=== PATIENT | male | born 1970 | race Caucasian/White ===

== ENCOUNTER 2020-10-02 04:02 | Emergency (ER) | payer BC, OTHER ==
[~2020-10-02] VITALS: Ht 157.5 cm; Wt 106.6 kg
[2020-10-02] MEDS ORDERED: MECLIZINE HCL 25 MG TABLET ONE (04:13)
--- NOTE | 2020-10-02 04:21 | NUR ---
jacob came to er bed 4 c/o dizziness, "room spinning sensation" 2xdays ago. aaox4. no sob. breathing evenly and unlabored on room air. connected to the monitor.
--- NOTE | 2020-10-02 04:22 | NUR ---
PER RADIOLOGY DEPT, CT CURRENTLY DOWN FOR MAINTENANCE. UNABLE TO TAKE PT TO CT UNTIL AFTER 629. AWARE
[2020-10-02 04:23] LABS: BASOPHILS % (AUTO) 0.5 % (0.0-2.0); EOSINOPHILS % (AUTO) 3.9 % (0.0-6.0); HEMATOCRIT 48 % (39-51); HEMOGLOBIN 16.3 g/dL (13.5-17.5); LYMPHOCYTES # (AUTO) 1.4 /CMM (0.8-4.8); LYMPHOCYTES % (AUTO) 20.2 % (20.0-44.0); MEAN CORPUSCULAR HGB CONC 34 g/dl (31.0-36.0); MEAN CORPUSCULAR VOLUME 86 fL (80-96); MONOCYTES # (AUTO) 0.7 /CMM (0.1-1.30); MONOCYTES % (AUTO) 10.1 % (2.0-12.0); NEUTROPHILS # (AUTO) 4.7 /CMM (1.8-8.9); NEUTROPHILS % (AUTO) 65.3 % (43.0-81.0); PLATELET COUNT (AUTO) 258 /CMM (150-450); RED BLOOD CELL COUNT(AUTO) 5.66 MIL/uL (4.5-6.0); WHITE BLOOD COUNT (AUTO) 7.1 K/uL (4.3-11.0)
[2020-10-02] MEDS ORDERED: MECLIZINE HCL 12.5 MG TABLET PO ONE (04:30)
[2020-10-02 04:31] LABS: CALCIUM, SERUM 8.8 mg/dL (8.5-10.1); CREATININE 0.9 mg/dL (0.6-1.3); POTASSIUM 3.8 mmol/L (3.5-5.1)
[2020-10-02] MEDS ORDERED: DIAZEPAM 5 MG TABLET ONE (05:39)
[2020-10-02] MEDS ORDERED: DIAZEPAM 5 MG TABLET PO ONE (06:00)
--- NOTE | 2020-10-02 06:55 | NUR ---
PT BROUGHT BY RADIOLOGY TO CT
--- NOTE | 2020-10-02 07:01 | NUR ---
PT RETURNED FROM CT
--- NOTE | 2020-10-02 07:04 | NUR ---
AMBULATED TO THE RESTROOM WITH A STEADY GAIT.
--- NOTE | 2020-10-02 07:10 | NUR ---
RECEIVED REPORT FROM CAREY CALDERA FOR [facility]. PT IS AAOX4, NOT IN RESPIRATORY DISTRESS, V/S STABLE, KEPT RESTED AND COMFORTABLE. WILL CONTINUE TO MONITOR.
[2020-10-02] MEDS ORDERED: METOCLOPRAMIDE HCL 10 MG/2 ML VIAL ONE (07:46)
[2020-10-02] MEDS ORDERED: METOCLOPRAMIDE HCL 10 MG/2 ML VIAL IV ONE (08:00)
--- NOTE | 2020-10-02 08:36 | NUR ---
IV removed. Catheter intact and site benign. Pressure and 4x4 applied to site. No bleeding noted. Patient discharged to home in stable condition. Written and verbal after care instructions given. Patient verbalizes understanding of instruction.
[2020-10-02 08:37] VITALS: BP 131/86
== END 2020-10-02 08:50 | disposition home or self-care (01) ==
LOC: ER 04:02
DX: R42 Dizziness and giddiness (principal); I10 Essential (primary) hypertension; E78.5 Hyperlipidemia, unspecified
CPT/HCPCS: 36415; 70450; 80048; 85025; 96374; 99284; J2765; J8597